=== PATIENT | female | born 1970 | race Caucasian/White ===

== ENCOUNTER → 2017-09-14 | Emergency (ER) | payer OTHER ==
[~2017-09-14] VITALS: Ht 165.1 cm; Wt 74.8 kg
[~2017-09-14] MED LIST: COZAAR50 MG
== END | disposition home or self-care (01) ==
LOC: ER 16:34
DX: N83.292 Other ovarian cyst, left side (principal); N39.0 Urinary tract infection, site not specified; K29.70 Gastritis, unspecified, without bleeding; R10.814 Left lower quadrant abdominal tenderness